=== PATIENT | female | born 1960 | race American Indian/Alaskan Native ===

== ENCOUNTER 2018-08-24 14:50 | Outpatient (CLI) | payer OTHER | END 2018-08-24 14:51 | disposition home or self-care (01) | LOC: LABHHL 14:50 | PROVIDERS: ATTEND Surgery | DX: N63.13 Unspecified lump in the right breast, lower outer quadrant (principal) | CPT/HCPCS: 88305 ==

== ENCOUNTER 2018-09-14 12:35 | Outpatient (CLI) | payer OTHER ==
--- NOTE | 2018-09-15 11:26 | Magnetic Resonance Report ---
BILATERAL BREAST MRI WITHOUT AND WITH CONTRAST: 09/14/18 12:35:00 CLINICAL: High risk for breast cancer. She had an ultrasound guided right breast needle biopsy on 08/24/18 with benign findings of fibrocystic disease, proliferative type with apocrine metaplasia, hemorrhage and focal chronic inflammation microcalcifications. This biopsy site was discordant with a mammographic asymmetry identified on the 08/03/18 and 08/10/18 mammograms. COMPARISON:08/03/18 and 08/10/18 mammograms. Ultrasound images for comparison. TECHNIQUE: Axial 1.0-mm T1 without, axial high resolution 2.0-mm T2 and axial 1.0-mm dynamic Vibrant high-resolution postcontrast T1 fat saturation sequences on a 1.5 Julia magnet. The examination was performed with an 8 channel dedicated Sent[employer] breast coil. Post processing with CAD and subtraction was performed on an [employer] workstation. 18.0 cc of Multihance was injected without incident for the contrast portion of the exam. Consent was obtained prior to the administration of the contrast. FINDINGS: Right: Minimal background parenchymal enhancement. Lesion 1 is an oval irregular focus of non-Mass enhancement at 9 o'clock 6.4 cm from the nipple and 10.7 cm from the chest wall. It measures 7.9 x 5.8 x 4.3 mm and is demonstrates heterogeneous enhancement with mixed kinetics, 168% peak enhancement and 14% type III washout. This lesion is approximately 3 cm cephalad to the biopsy clip from the recent biopsy. No mass or other suspicious enhancement of the right breast. No mass is identified to correlate with the original mammographic abnormality. No suspicious right axillary or right internal mammary lymph nodes. Left: Minimal background parenchymal enhancement. No mass or suspicious enhancement. A benign intraparenchymal lymph node at 6 o'clock 5 cm from the nipple measures 5.2 x 3.0 x 3.0 mm. A benign intraparenchymal lymph node at 7 o'clock 3.1 cm from the nipple measures 4.2 x 2.8 x 1.9 mm. No suspicious left axillary or left internal mammary lymph nodes. IMPRESSION: An 8mm suspicious focus of non-Mass enhancement in the right breast at 9 o'clock 6 cm from the nipple. Recommend MRI guided needle biopsy. Negative left breast. No suspicious lymph nodes. BI-RADS 4--Suspicious
== END 2018-09-14 12:36 | disposition home or self-care (01) ==
LOC: SPVIMAG 12:35
PROVIDERS: ATTEND Surgery
DX: R92.2 Inconclusive mammogram (principal); Z80.3 Family history of malignant neoplasm of breast
CPT/HCPCS: A9577; C8908; 77049

== ENCOUNTER 2018-09-30 09:54 | Outpatient (CLI) | payer OTHER ==
--- NOTE | 2018-09-30 12:44 | Mammography Report ---
RIGHT DIGITAL DIAGNOSTIC MAMMOGRAM: 09/30/18 09:54:00 CLINICAL: For clip placement immediately status post MRI biopsy. COMPARISON:08/24/18 FINDINGS: A biopsy clip is now identified in the upper outer quadrant and the clip placement is concordant with the lesion identified on MRI. IMPRESSION: Concordant clip placement status post MRI biopsy. BI-RADS CATEGORY: 4--Suspicious Pathology pending.
--- NOTE | 2018-09-30 12:54 | Magnetic Resonance Report ---
MRI GUIDED VACUUM ASSISTED CORE BIOPSY RIGHT BREAST: 09/30/18 09:54:00 CLINICAL: Suspicious lesions identified on 09/14/18 MRI. FINDINGS: Consent for the procedure was obtained. A Vibrant dynamic postcontrast series was performed on a 1.5 Julia magnet using an 8 channel Sentinelle dedicated breast coil. 18.0 cc of Multihance was injected intravenously and consent was obtained prior to the administration of contrast. The lesion was localized in the upper outer quadrant and was targeted using [employer] Sentinelle biopsy software. The skin was anesthetized with 1% lidocaine and a small dermatotomy was made. 2% lidocaine was administered for deeper anesthesia. 9-G biopsy was performed with an Oree vacuum assisted device from a lateral approach. Imaging demonstrated satisfactory positioning of the probe and multiple 9-gauge cores were obtained. A clip was placed after confirmation of adequate sampling. The probe was removed and hemostasis was achieved with pressure to the site. A sterile dressing was applied. The patient tolerated the procedure well and there were no apparent complications. A two view mammogram demonstrated concordant clip placement. The patient left the department in good condition with instructions for wound care and follow-up. IMPRESSION: Uncomplicated MRI biopsy with clip placement right breast.
== END 2018-09-30 09:55 | disposition home or self-care (01) ==
LOC: SPVIMAG 09:54
PROVIDERS: ATTEND Surgery
DX: D24.1 Benign neoplasm of right breast (principal); N64.1 Fat necrosis of breast; R92.0 Mammographic microcalcification found on diagnostic imaging of breast; Z80.3 Family history of malignant neoplasm of breast
CPT/HCPCS: 19085; 77065; 88305; A9577; 88341; 88342

== ENCOUNTER 2021-03-22 10:00 | Outpatient (CLI) | payer OTHER ==
--- NOTE | 2021-03-22 11:58 | Mammography Report ---
RIGHT DIGITAL DIAGNOSTIC MAMMOGRAM WITH CAD CONVENTIONAL, 03/22/2021 RIGHT LIMITED BREAST ULTRASOUND CLINICAL INFORMATION / INDICATION: Patient has a history of right breast cancer status post bilateral mastectomy with implant reconstruction. Patient presents for evaluation of an area of palpable karen rn and skin change along the incision site. MALIGNANT NEOPLASM OF LOWER INNER QUAD OF RT BREAST TECHNIQUE: Digital right mammographic imaging was performed. Spot compression views were obtained. Li mited ultrasound was performed. This examination was interpreted with the benefit of Computer-Aided D etection (CAD) analysis. COMPARISON: Prior mammogram 08/24/2018 FINDINGS: Breast Density: The breasts are almost entirely fatty. MAMMOGRAPHIC FINDINGS: Postsurgical change related to right mastectomy with retropectoral silicone im plant reconstruction. No dominant mass, suspicious calcifications, or architectural distortion in the right breast. Subcutaneous stranding is noted at the site of palpable concern in the 9:00 position o f the reconstructed right breast, most likely reflecting postsurgical change, though targeted ultraso und was performed for further evaluation. ULTRASOUND FINDINGS: Targeted ultrasound evaluation was performed of the area of interest. Targeted ultrasound of the area of palpable concern in the 9:00 position located 10 cm from the nipple is unr emarkable. No suspicious mass identified. IMPRESSION: 1. Benign postsurgical change related to mastectomy with silicone implant reconstruction. There is no suspicious abnormality to correspond with the site of palpable concern in the reconstructed right br east, therefore clinical correlation is recommended. Follow up recommendation: Clinical exam BI-RADS Category 2: Benign. A "normal" or negative report should not discourage follow up or biopsy of a clinically significant f inding. A written summary of these findings will be mailed to the patient. The patient will be entered into a mammography reporting system which will generate a reminder letter for the patient's next appointmen t at the appropriate interval. According to the [employer], yearly mammograms are recommended starting at age 40 and continuing as long as a woman is in good health. Breast MRI is recommended for women with an jennie roximately 20-25% or greater lifetime risk of breast cancer, including women with a strong family his tory of breast or ovarian cancer and women who have been treated for Hodgkin's disease. Signer Name: Zoraida John MD Signed: 03/22/2021 11:53 AM Workstation Name: [employer]
== END 2021-03-22 10:01 | disposition home or self-care (01) ==
LOC: SPVWC 10:00
PROVIDERS: ATTEND Internal Medicine Hematology
DX: C50.311 Malignant neoplasm of lower-inner quadrant of right female breast (principal); N63.10 Unspecified lump in the right breast, unspecified quadrant